=== PATIENT | female | born 1965 ===

== ENCOUNTER 2023-05-27 08:44 | Day surgery (SDC) | payer OTHER, SELFPAY ==
[2023-05-25 13:11] VITALS: BMI 38.4
--- NOTE | 2023-05-25 14:43 | HO.ANESPROP2 ---
Documented by User: Cindi Harris NP 05/25/23 14:44 HPI - Anesthesia Eval Consult details Narrative: 57yo F for Upper Endoscopy and Colonoscopy [facility] Past Medical History Medical History SVT (supraventricular tachycardia) GERD (gastroesophageal reflux disease) Osteoarthritis Migraine Fibromyalgia Renal calculi Anxiety Surgical History Surgical History History of tonsillectomy and adenoidectomy Hx of reduction mammoplasty Hx of hysterectomy Hx of cholecystectomy History of cardiac radiofrequency ablation History of total left knee replacement H/O colonoscopy History of esophagogastroduodenoscopy (EGD) Social History Social History Household Members: Spouse Patient Tobacco Use Status: Former Tobacco user Are you DNR?: No Advance Directives: No Advance Directives Information Provided: Yes Nutrition Risks: No Nutritional Risk Meds Allergies Allergy/AdvReac Type Severity Reaction Status Date / Time No Known Allergies Allergy Verified 05/27/23 09:18 Home Medications Medication Instructions Recorded Confirmed Last Taken Type diazepam 5 mg tablet 5 mg PO DAILY PRN anxiety 05/25/23 05/25/23 Unknown History gabapentin 300 mg capsule 300 mg PO BID 05/25/23 05/25/23 Unknown History ibuprofen 600 mg tablet 600 mg PO TID PRN Pain 05/25/23 05/25/23 Unknown History pantoprazole 40 mg tablet,delayed 40 mg PO DAILY 05/25/23 05/25/23 Unknown History release sumatriptan succinate 50 mg tablet 50 mg PO Q2-4H PRN Migraine 05/25/23 05/25/23 Unknown History Headache topiramate 100 mg tablet 100 mg PO BID 05/25/23 05/25/23 Unknown History venlafaxine 37.5 mg 37.5 mg PO DAILY 05/25/23 05/25/23 Unknown History capsule,extended release 24 hr Exam Height,Weight and Vital Signs: Height 5 ft 2 in Weight 95.254 kg Assessment and Plan Assessment Anesthesia Assessment: Chart Reviewed Documented by User: Alexandra Patel MD 05/27/23 09:33 [facility] Past Medical History Medical History SVT (supraventricular tachycardia) GERD (gastroesophageal reflux disease) Osteoarthritis Migraine Fibromyalgia Renal calculi Anxiety Surgical History Surgical History History of tonsillectomy and adenoidectomy Hx of reduction mammoplasty Hx of hysterectomy Hx of cholecystectomy History of cardiac radiofrequency ablation History of total left knee replacement H/O colonoscopy History of esophagogastroduodenoscopy (EGD) History of Problems with Anesthesia: No Social History Social History Household Members: Spouse Patient Tobacco Use Status: Former Tobacco user Are you DNR?: No Advance Directives: No Advance Directives Information Provided: Yes Nutrition Risks: No Nutritional Risk Meds Allergies Allergy/AdvReac Type Severity Reaction Status Date / Time No Known Allergies Allergy Verified 05/27/23 09:18 Home Medications Medication Instructions Recorded Confirmed Last Taken Type diazepam 5 mg tablet 5 mg PO DAILY PRN anxiety 05/25/23 05/25/23 Unknown History gabapentin 300 mg capsule 300 mg PO BID 05/25/23 05/25/23 Unknown History ibuprofen 600 mg tablet 600 mg PO TID PRN Pain 05/25/23 05/25/23 Unknown History pantoprazole 40 mg tablet,delayed 40 mg PO DAILY 05/25/23 05/25/23 Unknown History release sumatriptan succinate 50 mg tablet 50 mg PO Q2-4H PRN Migraine 05/25/23 05/25/23 Unknown History Headache topiramate 100 mg tablet 100 mg PO BID 05/25/23 05/25/23 Unknown History venlafaxine 37.5 mg 37.5 mg PO DAILY 05/25/23 05/25/23 Unknown History capsule,extended release 24 hr Exam Airway Mallampati Class: II TM Dist: >3cm Neck ROM: Full Loose/Missing/Broken Teeth: No Heart: RRR Lungs: CTA Assessment and Plan Assessment Anesthesia Assessment: Anesthesia Plan Discussed Final Anesthetic Review History of Problems with Anesthesia: No NPO: Yes ASA Class: II Final Preanesthetic Review: Meds/Allgs Chart Reviewed, Consent Obtained/Reviewed and Anes Risks/Benef Reviewed Patient Risk: Low Procedure Risk: Intermediate Anesthetic Plan Anesthetic Plan: MAC: Disposition: Standard PACU
[2023-05-27 08:56] VITALS: BMI 37.7
[2023-05-27] MEDS: Lactated Ringers 1,000 ML 100 ML IVCONT (09:06)
[2023-05-27 09:12] VITALS: BP 129/85; PULSE 96; RESP 18; TEMP 36.6; O2SAT 100
--- NOTE | 2023-05-27 09:35 | MHC.SHP ---
Pre-Procedural Eval Section A - 24 Hr Update-Section A only Date of Service: 05/27/23 Section B - Complete if H&P > 30 days Chief Complaint: screening,gerd,dysphagia Details of Present Illness: see H&P no changes Relevant Family History (Specify if Yes): No Relevant Social History: None Present Medications: see Short Stay Collaborative assessment Medical History: No relevant PMH Allergies: Allergies Allergy/AdvReac Type Severity Reaction Status Date / Time No Known Allergies Allergy Verified 05/27/23 09:18 Review of Systems Sugical H&P ROS: Negative: Constitution, Cardiovascular, Respiratory, Neurological, Psychiatric, Hem-Onc, Allergic/Immunologic, Gastrointestinal, Genitourinary, Musculoskeletal, Integumentary, Endocrine and Eyes/Ears/Nose/Throat Exam Surgical H&P Exam: Normal: HEENT, Normal: Heart, Normal: Lungs, Normal: Extremities, Normal: Abdomen, Normal: Skin and Normal: Neurological Plan Diagnosis/Plan: Unchanged I have reviewed the history and physical and performed a pertinent physical examination on my patient. No changes have occurred unless specified. Time Spent With Patient Time: Total time managing care of this patient today ____ minutes.
[2023-05-27 10:29] VITALS: BP 108/61; PULSE 70; RESP 16; TEMP 37.4; O2SAT 98
[2023-05-27 10:46] VITALS: BP 109/66; PULSE 64; RESP 16; TEMP 36.3; O2SAT 99
--- NOTE | 2023-05-27 11:08 | OP_ITS ---
DATE OF SERVICE: 05/27/2023 SURGEON: John Landin MD INDICATIONS: 1. Gastroesophageal reflux disease. 2. Dysphagia. 3. Colon cancer screening. PREOPERATIVE DIAGNOSIS: POSTOPERATIVE DIAGNOSIS: PROCEDURE PERFORMED: Upper endoscopy with biopsy, colonoscopy to the terminal ileum with biopsy. ESTIMATED BLOOD LOSS: COMPLICATIONS: ANESTHESIA: ASSISTANTS: SPECIMENS: CURRENT MEDICATIONS: Monitored anesthesia care. DESCRIPTION OF PROCEDURE: A history and physical performed. The risks and benefits of the procedure were explained to the patient. Informed consent was obtained. The patient was placed in the left lateral decubitus position. The Olympus video gastroscope was introduced into the esophagus, stomach, and duodenum. Examination was performed. The scope was removed. She was repositioned for colonoscopy. A digital rectal exam was performed and was found to be normal. The Olympus pediatric video colonoscope was introduced into the rectum and advanced to the cecum. The cecum was identified by transillumination, palpation, identification of ileocecal valve. Examination was performed. The scope was removed. She tolerated the procedure well and was taken to recovery room in stable condition. FINDINGS: Esophagus: The esophagus was normal. There was no stricture. Biopsies were obtained from the EG junction, which was slightly irregular. Stomach: The stomach showed no evidence of masses or ulcers. There were multiple benign-appearing polyps, less than 10 mm in the body and fundus consistent with fundic gland polyps. Two of these were biopsied. Duodenum: The bulb and second portion were normal. Colonoscopy: The terminal ileum was examined and appeared normal. There was no evidence of Crohn disease. The visualized colonic mucosa was normal without evidence of masses, ulcers, or polyps. The quality of prep was good. Random biopsies were obtained from the sigmoid to rule out microscopic colitis. Retroflexed examination showed some small internal hemorrhoids. IMPRESSION: 1. Gastric polyps. 2. Gastroesophageal reflux disease. 3. Normal colonoscopy. RECOMMENDATIONS: 1. Follow up the biopsy results. 2. Consider repeat colonoscopy in 5 years because of family history of colon polyps. MD GULSHAN Koch/AMBROSIO / [id number] MTDD
--- NOTE | 2023-05-27 12:05 | PM.OP ---
Brief Operative Note Date of Service: 05/27/23 Pre-op diagnosis: screening gerd dysphagia Post-op diagnosis: same Procedure: egd colon Surgeon: John Landin MD Anesthesia: MAC Was an Labor Utilization Superintendent used for this Procedure?: No Estimated blood loss (mL): 5 Pathology: other Condition: stable Disposition: PACU
== END 2023-05-27 11:05 | disposition home or self-care (01) ==
PROVIDERS: PCP Nurse Practitioner Adult Health; Visit Provider Internal Medicine Gastroenterology
PROC: (CPT 45380; principal; 2023-05-27 09:50)
DX: Z12.11 Encounter for screening for malignant neoplasm of colon (principal); Z83.719 Family history of colon polyps, unspecified; K64.8 Other hemorrhoids; R13.19 Other dysphagia; K21.9 Gastro-esophageal reflux disease without esophagitis; K31.7 Polyp of stomach and duodenum; K29.50 Unspecified chronic gastritis without bleeding; K76.0 Fatty (change of) liver, not elsewhere classified; M79.7 Fibromyalgia; G43.909 Migraine, unspecified, not intractable, without status migrainosus; I47.10 Supraventricular tachycardia, unspecified; N20.0 Calculus of kidney; F41.9 Anxiety disorder, unspecified; Z79.1 Long term (current) use of non-steroidal anti-inflammatories (NSAID); Z79.899 Other long term (current) drug therapy; Z98.890 Other specified postprocedural states; Z90.49 Acquired absence of other specified parts of digestive tract
CPT/HCPCS: 45380; 43239; 88305; 88313; 88342; J2704; J3010